=== PATIENT | male | born 2000 | race Caucasian/White ===

== ENCOUNTER 2021-03-14 14:36 | Emergency (ER) | payer OTHER, SELFPAY ==
[2021-03-14] VITALS (11 sets, daily range): BP systolic 102–145; BP diastolic 56–81; PULSE 62–82; RESP 16; TEMP 37–37.1; O2SAT 97–100
--- NOTE | ~2021-03-14 | XR_ITS ---
EXAMINATION: XR chest 2V DATE: 03/14/2021 15:16 INDICATION: Shortness of breath. TECHNIQUE: Frontal and lateral views of the chest were obtained. COMPARISON: Chest 2 views 08/09/2017, CT abdomen and pelvis 11/16/2017 FINDINGS: The chest demonstrates clear lungs without pneumonia, pleural effusion, or pneumothorax. Th e heart size is normal. IMPRESSION: 1. No acute cardiopulmonary disease. Reviewed, dictated and finalized at location A.
--- NOTE | ~2021-03-14 | CT_ITS ---
EXAMINATION: CT abdomen pelvis w con DATE: 03/14/2021 18:52 INDICATION: Abdominal pain. TECHNIQUE: Computed tomography (CT) of the abdomen and pelvis was performed with 100 mL Omnipaque 350 intravenous contrast. Automated exposure control and iterative reconstruction technique were employe d. The dose-length product was 274.27 mGy-cm. COMPARISON: CT abdomen and pelvis 11/16/2017 FINDINGS: The visualized portions of the lung bases are clear without pneumonia or pleural effusion. The heart size is normal. No pericardial effusion. The liver, gallbladder, spleen, pancreas, adrenal glands, and kidneys are normal. There are no dilated loops of bowel. The appendix is normal. There ar e no pathologically enlarged lymph nodes. There is no free intraperitoneal fluid. The bones are unrem arkable. IMPRESSION: 1. No etiology for the patient's symptoms. Reviewed, dictated and finalized at location A.
[2021-03-14 15:13] LABS: Basophils Percent Auto 0.5 % (0.2-1.2); Eosinophils Absolute Auto 0.1 K/mm3 (0-0.3); Eosinophils Percent Auto 1.3 % (0-4.4); Hematocrit 43.3 % (42.0-52.0); Hemoglobin 14.4 g/dL (14.0-18.0); Immature Granulocyte Absolute 0.03 K/mm3 (0.00-0.031); Immature Granulocyte Percent A 0.4 % (0-0.5); Lymphocytes Absolute Auto 1.32 K/mm3 (0.9-3.2); Lymphocytes Percent Auto 15.4 % (18.3-44.2); Mean Corpuscular HGB Conc 33.3 g/dl (32-36); Mean Corpuscular Hemoglobin 31.9 pg (26-34); Monocytes Absolute Auto 0.6 K/mm3 (0.1-0.6); Monocytes Percent Auto 7.1 % (2.6-8.5); Neutrophils Absolute Auto 6.5 K/mm3 (1.3-6.7); Neutrophils Percent Auto 75.3 % (45.5-73.1); Platelet Count Result 249 k/mm3 (150-375); Red Blood Count 4.51 M/mm3 (4.6-6.20); Red Cell Distribution Width 12.3 % (11.5-14.5); White Blood Count 8.6 K/mm3 (4.5-10.0)
[2021-03-14 15:23] LABS: Alanine Aminotransferase 36 U/L (4-50); Albumin Level 4.4 g/dL (3.5-5.1); Alkaline Phosphatase 63 U/L (38-126); Anion Gap 7 mmol/L (8-16); Aspartate Amino Transferase 42 U/L (17-59); Bilirubin,Total 0.4 mg/dL (0.2-1.3); Blood Urea Nitrogen 11 mg/dL (9-20); Calcium 9.3 mg/dL (8.4-10.2); Carbon Dioxide 27 mmol/L (22-30); Chloride 105 mmol/L (98-107); Estimated CRCL calculation 107 ml/min; Estimated Glomerular Filt Rate > 60; Glucose 111 mg/dL (75-110); Potassium 3.6 mmol/L (3.4-5.0); Sodium 139 mmol/L (137-145)
[2021-03-14 15:34] LABS: Add Urine Microscopic? YES; Amorphous Sediment Urine Few; Appearance Urine Cloudy (Clear); Bacteria Urine Trace /hpf; Bilirubin Urine Negative (Negative); Blood Urine Negative (Negative); Color Urine Yellow (Yellow); Glucose Urine UA Negative (Negative); Ketones Urine Negative (Negative); Leukocyte Esterase Ur Negative LEU/UL (Negative); Nitrate Urine Negative (Negative); Protein Urine Negative (Negative); RBC Urine 0-2 /hpf (0-2); Specific Grav Ur 1.012 (1.001-1.035); Urobilinogen Urine Negative mg/dL (<2.0); WBC Urine 0-3 /hpf
--- NOTE | 2021-03-14 16:25 | ED.GENADULT ---
HPI - General Adult General Chief complaint: Unspecified Stated complaint: Sent From [facility], Multiple Complaints Time Seen by Provider: 03/14/21 16:18 Source: patient and family Mode of arrival: ambulatory Limitations: no limitations History of Present Illness HPI narrative: Patient is a 20-year-old male with history of celiac disease, anxiety who presents for evaluation of multiple complaints from urgent care. Unsure why the patient was sent from urgent care to be evaluated. Patient is also unsure of this. States that he was told that he needed to come here for evaluation. Patient is reporting intermittent abdominal pain and fullness which is now mostly resolved. He had an episode of nausea and dry heaving this morning. No fever or chills. No chest pain or current shortness of breath. No diarrhea or constipation. No rash. Patient states that his hair is falling out and he intermittently has felt weak. He states he often has night sweats and has insomnia. No unintentional weight loss. No history of autoimmune disease. Patient states that at times he feels short of breath but denies that currently. At times he feel he may pass out but has had no episodes of loss of consciousness. In the past, patient has had a bowel obstruction where he was hospitalized at [facility]. Of note, patient does state his anxiety has been heightened due to a recent break-up with a girlfriend. Patient states this may be the cause of his symptoms as well. Related Data Home Medications Medication Instructions Recorded Confirmed No Home Medications 03/14/21 03/14/21 Allergies Allergy/AdvReac Type Severity Reaction Status Date / Time gluten Allergy Severe celiacs Verified 03/14/21 16:25 disease Review of Systems Review of Systems: Narrative: CONSTITUTIONAL: Reports night sweats and insomnia EYES: Denies visual changes, redness, or discharge. ENT: Denies rhinorrhea, congestion, reports sore throat for 2 days CARDIOVASCULAR: Denies chest pain, palpitations, or edema. RESPIRATORY: Denies cough or current dyspnea. GASTROINTESTINAL: Reports abdominal pain, nausea GENITOURINARY: Denies dysuria or hematuria. SKIN: Denies rash or itching. MUSCULOSKELETAL: Denies back pain, joint pain, or myalgia. NEUROLOGIC: Denies headache, numbness, or weakness. PSYCHIATRIC: Reports anxiety PMFSH Past Medical History Medical History (Updated 03/14/21 @ 18:49 by Maryjane Rodríguez MD) Anxiety Celiac disease Social History Social History Smoking status: Never smoker Alcohol intake: current Substance use: never Exam Narrative: Exam Narrative: GENERAL: Awake, alert, conversant, mildly anxious appearing HEAD: Normocephalic, atraumatic. EYES: PERRLA and EOMI. ENT: Nares clear, no rhinorrhea or epistaxis. Mucous membranes moist. NECK: Supple. No thyromegaly. CHEST: No respiratory distress, breathing even and non labored HEART: Regular rate, sinus rhythm ABDOMEN:Non distended, non tender in all 4 quadrants, no rebound or guarding EXTREMITIES: Normal range of motion. No edema. No calf pain. SKIN: Warm, dry, no rash. NEURO:No focal deficits. Alert and oriented x3 Course Vital Signs Vital signs: Vital Signs Temperature 37.1 C 03/14/21 14:57 Pulse Rate 82 03/14/21 14:57 Respiratory Rate 16 03/14/21 14:57 Blood Pressure 110/65 03/14/21 14:57 Pulse Oximetry 99 03/14/21 14:57 Temperature 37.1 C 03/14/21 14:57 Pulse Rate 82 03/14/21 14:57 Respiratory Rate 16 03/14/21 14:57 Blood Pressure 102/63 03/14/21 18:16 Pulse Oximetry 98 03/14/21 18:16 Medical Decision Making MDM Narrative Medical decision making narrative: Patient presenting for evaluation of a myriad of symptoms which include general fatigue, insomnia, hair loss, abdominal pain. At the time of assessment, patient's abdomen is soft without significant pain or signs of
[2021-03-14 18:11] LABS: Lipase 119 U/L (23-300)
== END 2021-03-14 20:00 | disposition home or self-care (01) ==
PROVIDERS: Emergency Medicine; Emergency Provider Emergency Medicine; PCP Family Medicine
DX: R10.9 Unspecified abdominal pain (principal); F41.9 Anxiety disorder, unspecified
CPT/HCPCS: 36415; 71046; 74177; 80053; 81001; 83690; 85025; 87081; 87880; 99284; Q9967

== ENCOUNTER 2025-04-23 19:21 | Emergency (ER) | payer BC, SELFPAY ==
[2025-04-23 19:33] VITALS: BP 116/87; PULSE 98; RESP 17; TEMP 35.9; O2SAT 99
--- NOTE | 2025-04-23 19:46 | ED_ITS ---
HPI - Skin/Abscess/Foreign Bdy General Chief complaint: Skin/Abscess/Foreign Body Stated complaint: ?Poisn Fanny Time Seen by Provider: 04/23/25 19:30 Source: patient and RN notes reviewed Mode of arrival: ambulatory Limitations: no limitations History of Present Illness HPI narrative: 24-year-old male presents to the [facility] complaining of poison fanny the last week. 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 Patient reports a pruritic papular rash to his bilateral ankles, arms, and groin area. Patient denies any fevers body aches, chills, nausea vomiting, pain, or other symptoms. She has not tried in the [id number] and help with symptoms. Related Data Allergies Allergy/AdvReac Type Severity Reaction Status Date / Time gluten Allergy Severe celiacs Verified 04/23/25 19:28 disease Review of Systems Review of Systems: CONSTITUTIONAL: Denies fever, chills, or sweats. EYES: Denies visual changes, redness, or discharge. ENT: Denies rhinorrhea, congestion, sore throat, or otalgia. CARDIOVASCULAR: Denies chest pain, palpitations, or edema. RESPIRATORY: Denies cough or dyspnea. GASTROINTESTINAL: Denies abdominal pain, nausea, vomiting, or diarrhea. GENITOURINARY: Denies dysuria or hematuria. SKIN: Positive for rash or itching. MUSCULOSKELETAL: Denies back pain, joint pain, or myalgia. NEUROLOGIC: Denies headache, numbness, or weakness. PSYCHIATRIC: Denies anxiety or depression. All other systems reviewed are negative, except as documented in HPI. [facility] Past Medical History Medical History Celiac disease Anxiety Social History Social History Smoking status: Never smoker Second hand tobacco smoke exposure: Yes Alcohol intake: current Substance use: never Comments At the time of my signature, I reviewed and agree with the nursing past medical, surgical, social, and family history. There is no relevant family history pertinent to the patient complaint. Exam Narrative: GENERAL: This is a well-nourished, well-developed adult, in no apparent distress. They are non ill-appearing, nontoxic appearing. HEAD: normocephalic, atraumatic. EYES: Sclera clear/white. Conjunctiva normal. Vision is grossly intact. Extraocular movements intact EARS: External ears normal, Hearing grossly intact. NOSE: External nose normal THROAT: Mucous membranes moist, NECK: Neck supple, CARDIOVASCULAR: Regular rate and rhythm RESPIRATORY: Respiratory rate normal, respiratory effort nonlabored, no respiratory distress SKIN: There is a vesicular papular erythematous pruritic rash scattered scantly throughout the patient's bilateral arms, diffusely the patient's bilateral ankles, in through the ground the groin. No area of fluctuance, no induration, no area of fluctuance rashes nontender. NEURO: awake, alert, and oriented to person, place and time. There were no obvious focal neurologic abnormalities. EXTREMITIES: No joint tenderness, effusion, or edema noted. Course Course Emergency Course: Portions of this record may have been created with voice recognition software Level of Care: Express Care Visit Vital Signs Vital signs: Reviewed MDM - Skin/Abscess/Foreign Bdy MDM Narrative Medical decision making narrative: Patient likely has contact dermatitis from poison fanny. Patient given a sinusitis Medrol start a prescription of prednisone tomorrow. Discussed physical exam findings. Advised supportive measures and signs/symptoms to go to the ER. Pt is appropriate for outpt treatment and f/u. Differential Diagnosis Differential diagnosis: Likely viral exanthem, cellulitis, impetigo and contact dermatitis Critical Care Time Critical Care Time Critical Care Time: No Discharge Plan Discharge Clinical Impression: Poison fanny Patient Disposition: Home Condition: Stable Instructions: Poison Fanny (ED) Additional Instructions: Your given a shot of methylprednisolone today. Start the prednisone tomorrow. Take the prednisone as directed. Take it in the morning and take it with food. You may use jclw-nel-snjaekm Tecnu soap as directed on the bottle to help remove the oils from poison fanny off your skin. You may use calamine lotion, camphor, hydrocortisone cream, Benadryl cream as needed for itchiness symptoms. You may also take Zyrtec or Claritin as needed for allergy ear or symptoms. Follow-up PCP in 3-5 days. If you develop any worsening redness, swelling, discharge, fevers, breathing problems, or any other concerns please go to the ER immediately. Patient Language: Cape Verdean Prescriptions: New prednisone 50 mg tablet 50 mg PO DAILY 5 Days Qty: 5 0RF Follow-up/Referrals: UNKNOWN,DOCTOR [Primary Care Provider] - Time of Disposition: 19:45
== END 2025-04-23 19:57 | disposition home or self-care (01) ==
DX: L23.7 Allergic contact dermatitis due to plants, except food (principal); K90.0 Celiac disease
CPT/HCPCS: 96372; 99213; G0463; J2919

== ENCOUNTER 2025-05-06 16:48 | Emergency (ER) | payer BC, SELFPAY ==
--- NOTE | ~2025-05-06 | XR_ITS ---
Clinical history:Crush injury. Laceration distal lateral finger EXAM:X-ray finger third left middle 2 views TECHNIQUE:4 images of the left middle digit were obtained. Comparisons:None FINDINGS: Soft tissue swelling about the third finger. No fracture. No dislocation. No radiopaque foreign body identified. IMPRESSION: No fracture. No dislocation. Soft tissue swelling about the left third digit. If symptoms persist or worsen, consider a short-term follow-up study or additional imaging for furthe r assessment. Reviewed, dictated and finalized at location A. IMPRESSION: No fracture. No dislocation. Soft tissue swelling about the left third digit. If symptoms persist or worsen, consider a short-term follow-up study or additio nal imaging for further assessment.
--- NOTE | 2025-05-06 16:50 | ED_ITS ---
HPI - Wound/Laceration General Chief Complaint: Extremity Injury, Upper Stated Complaint: Cut Hand Time Seen by Provider: 05/06/25 16:50 Source: patient Mode of arrival: ambulatory Limitations: no limitations History of Present Illness HPI narrative: Mckay is a 24-year-old male patient presenting to the clinic today with complaints of a left 3rd finger injury. He reports he smashed it on the bucket truck while at work. Has a laceration to the distal finger. Bleeding is controlled. Tetanus is unknown. Works in the [employer] industry. Related Data Allergies Allergy/AdvReac Type Severity Reaction Status Date / Time gluten Allergy Severe celiacs Verified 05/06/25 17:00 disease Review of Systems Review of Systems: Pertinent positives per HPI. Patient denies any fever, chills, rash, headache, visual changes, dizziness, cough, runny nose, sore throat, shortness of breath, chest pain, palpitations, nausea, vomiting, diarrhea, constipation, abdominal pain, or any urinary issues. [facility] Past Medical History Medical History (Updated 05/06/25 @ 17:23 by Nilesh Tang APRN) Celiac disease Anxiety Social History Social History Smoking status: Never smoker Second hand tobacco smoke exposure: Yes Alcohol intake: current Substance use: never Comments At the time of my signature, I reviewed and agree with the nursing past medical, surgical, social, and family history. There is no relevant family history pertinent to the patient complaint. Exam Narrative: General: Well-developed, well nourished, in no apparent distress Head: Normocephalic, atraumatic. Cardio: Regular rate and rhythm, s1 and s2 normal, no murmur appreciated. Resp: Clear to auscultation bilaterally, no rhonchi, rales, wheezing or rubs. Musculoskeletal: No deformity, avulsion flap laceration measuring 1.5 cm to the distal left 3rd lateral finger, tender to palpation, grossly normal range of motion, muscle strength strong and equal, peripheral pulse strong, no edema, no cyanosis, normal gait and station Course Course Emergency Course: Portions of this record may have been created with voice recognition software. Level of Care: Express Care Visit Vital Signs Vital signs: Vital Signs Temperature 36.6 C 05/06/25 17:01 Pulse Rate 78 05/06/25 17:01 Respiratory Rate 14 05/06/25 17:01 Blood Pressure 117/75 05/06/25 17:01 Pulse Oximetry 100 05/06/25 17:01 Oxygen Delivery Room Air 05/06/25 17:01 Temperature 36.6 C 05/06/25 17:01 Pulse Rate 78 05/06/25 17:01 Respiratory Rate 14 05/06/25 17:01 Blood Pressure 117/75 05/06/25 17:01 Pulse Oximetry 100 05/06/25 17:01 Oxygen Delivery Room Air 05/06/25 17:01 Vital signs reviewed Procedures Laceration Laceration 1: Date: 05/06/25 Site: hand (3rd finger) Side (If applicable): left Size (cm): 1 Description: irregular Depth: simple, single layer Local Anesthetic: lidocaine 1% Amount of anesthesia used (mL): 2 Pre-repair: wound explored, irrigated and irrigated extensively ====== Skin Level ====== Skin layer closed with: nylon Size (cm): 5-0 Technique: simple, interrupted ====== Subcutaneous Layer ====== ====== Muscle Layer ====== ====== Tendon Layer ====== Dressing: Verbal consent obtained for laceration repair. Risk and benefits explained and patient voiced understanding. Area was cleansed with antiseptic wound wash, sterile normal saline irrigation, and Betadine and a 27 gauge needle was then used to instill (4) ml of 1% lidocaine without epi into the mid finger finger just above the PIP joint to create a digital block. Anesthesia was appropriate. Area was prepped and draped using sterile technique. A 5-0 suture on a p needle was used to place (4) interrupted sutures bringing the wound edges together- well approximated. Patient tolerated procedure well. Sterile dressing applied. MDM - Wound/Laceration MDM Narrative Medical decision making narrative: At the time of visit patient is resting comfortably on the exam table. Patient appears to be nontoxic. Complaints of a left 3rd finger injury. He reports he smashed it on the bucket truck while at work. Has a laceration to the distal finger. Bleeding is controlled. Tetanus is unknown. Diagnostics: X-ray of the left 3rd finger was performed and shows no sign of acute fracture or malalignment. Procedures: Laceration repair was performed in the clinic today. Four interrupted sutures were placed in the wound and close well approximate. Left small area of opening for drainage as the patient has a contaminated wound-work in the [employer] industry. Plan: Patient has avulsion laceration to the left middle lateral distal finger. Laceration repair was performed placing [address] patient on cephalexin prophylactically for infection as the wound was contaminated. Supportive measures were discussed with the patient and they voiced understanding discharge instructions and agrees to treatment plan. Return precautions reviewed Differential Diagnosis Differential diagnosis: Likely laceration, abscess, abrasion, avulsion of skin and other (Finger fracture-open fracture) Discharge Plan Discharge Clinical Impression: Finger laceration Qualifiers: Encounter type: initial encounter Finger: middle finger Damage to nail status: without damage Foreign body presence: without foreign body Laterality: left Qualified Code(s): S61.213A - Laceration without foreign body of left middle finger without damage to nail, initial encounter Patient Disposition: Home Condition: Stable Instructions: Antibiotic Form, Finger Laceration (ED) Additional Instructions: X-ray of the left 3rd finger is negative for any sign of fracture or malalignment. Tdap was given in the clinic today. Take cephalexin as prescribed Leave bandage on for 24 hours then may remove and apply band aide covering as needed. Keep wound clean and dry Skin sutures out in 7-10 days. If head laceration- norberto out in 5 days. Watch for signs and symptoms of infection- redness, streaking, swelling, purulent discharge, or increase in pain. Follow up with your PCP for suture removal or return to the Express care. Patient Language: Dominican Prescriptions: New cephalexin 500 mg capsule 500 mg PO Q12H 7 Days Qty: 14 0RF Follow-up/Referrals: UNKNOWN,DOCTOR [Non-Staff] - Time of Disposition: 18:07 Quality NIHSS Nursing Documentation ED NIHSS nursing documentation: reviewed/agree
[2025-05-06 17:01] VITALS: BP 117/75; PULSE 78; RESP 14; TEMP 36.6; O2SAT 100
[2025-05-06] MEDS: TETANUS,DIPHTHERIA,AC PERTUSSIS ADULT (0.5 ML) BOOSTRIX IM (17:25)
== END 2025-05-06 18:10 | disposition home or self-care (01) ==
PROVIDERS: Emergency Provider Nurse Practitioner Family
DX: S61.213A Laceration without foreign body of left middle finger without damage to nail, initial encounter (principal); W23.0XXA Caught, crushed, jammed, or pinched between moving objects, initial encounter; Z23 Encounter for immunization
CPT/HCPCS: 12001; 73140; 90471; 90715; 99213; G0463; J2003

== ENCOUNTER 2025-07-16 17:10 | Emergency (ER) | payer BC, SELFPAY ==
[2025-07-16 17:15] VITALS: BP 143/72; PULSE 87; RESP 20; TEMP 36.8; O2SAT 100
--- NOTE | 2025-07-16 17:16 | ED_ITS ---
HPI - Skin/Abscess/Foreign Bdy General Chief complaint: Skin/Abscess/Foreign Body Stated complaint: RASH Source: patient and RN notes reviewed Mode of arrival: ambulatory Limitations: no limitations History of Present Illness HPI narrative: Patient is a 24-year-old male who presents to the [facility] with complaints of possible poison fanny. Patient states that he was out the [employer] over the weekend hunting. He states that he noticed a rash to bilateral hands, arms, and genitals yesterday. He reports itching of the rash. Denies recent illness or fever. Related Data Allergies Allergy/AdvReac Type Severity Reaction Status Date / Time gluten Allergy Severe celiacs Verified 07/16/25 17:13 disease Review of Systems Review of Systems: CONSTITUTIONAL: Denies fever, chills, or sweats. EYES: Denies visual changes, redness, or discharge. ENT: Denies otalgia and sore throat CARDIOVASCULAR: Denies chest pain, palpitations, or edema. RESPIRATORY: Denies cough or dyspnea. GASTROINTESTINAL: Denies abdominal pain, nausea, vomiting, or diarrhea. GENITOURINARY: Denies dysuria or hematuria. SKIN: Reports rash and itching. MUSCULOSKELETAL: Denies back pain, joint pain, or myalgia. NEUROLOGIC: Denies headache, numbness, or weakness. Pertinent positives per HPI. [facility] Past Medical History Medical History (Updated 07/16/25 @ 17:24 by Monie Montoya APRN) Celiac disease Anxiety Social History Social History Smoking status: Never smoker Second hand tobacco smoke exposure: Yes Alcohol intake: current Substance use: never Comments At the time of my signature, I reviewed and agree with the nursing past medical, surgical, social, and family history. There is no relevant family history pertinent to the patient complaint. Exam Narrative: GENERAL: This is a well-nourished, well-developed patient, in no apparent distress. HEAD: normocephalic, atraumatic. EYES: PERRL. Sclera clear/white. Vision is grossly intact. EARS: External ears normal, auditory canals clear and without drainage, TMs normal without perforation. Hearing grossly intact. NOSE: External nose normal with no obvious nasal discharge, nares without redness, no rhinorrhea. THROAT: Mucous membranes moist, posterior pharynx clear. NECK: Neck supple, non-tender without lymphadenopathy, masses or thyromegaly. CARDIOVASCULAR: Regular rate and rhythm without murmurs, gallops, or rubs. RESPIRATORY: Clear to auscultation. Breath sounds equal bilaterally. No wheezes, rales, or rhonchi. GASTROINTESTINAL: Abdomen soft, non-tender, nondistended. Bowel sounds are active. No hepato-splenomegaly, or palpable masses. No guarding. SKIN: Vesicular rash, consistent with poison fanny to bilateral hands, arms, and genitals. NEURO: awake, alert, and oriented to person, place and time. There were no obvious focal neurologic abnormalities. Course Course Level of Care: Express Care Visit Vital Signs Vital signs: Reviewed MDM - Skin/Abscess/Foreign Bdy MDM Narrative Medical decision making narrative: Prevention is always better than treatment. Learn to identify poison fanny, oak, and sumac and avoid it. Wear long sleeves, long pants, shoes, and socks. If you touched the plant, try to keep your hands away from your eyes, mouth, and face. Wash the skin thoroughly with soap and cool water as soon as possible. Scrub under the fingernails with a brush to prevent spreading of the resin to other parts of the body by touching or scratching. Remember to wash any clothing with soap and hot water as the resin can persist for many months and cause further dermatitis. Use calamine lotion on the affect area. IF symptoms get worse to follow up with your primary care provider or seek ER visit if you developing difficulty breathing, weakness, dizziness. Differential Diagnosis Differential diagnosis: Likely abscess of skin or subcutaneous tissue, cellulitis, contact dermatitis and other (poison fanny) Critical Care Time Critical Care Time Critical Care Time: No Discharge Plan Discharge Clinical Impression: Poison fanny dermatitis Patient Disposition: Home Condition: Stable Instructions: Poison Fanny (ED) Additional Instructions: Prevention is always better than treatment. Learn to identify poison fanny, oak, and sumac and avoid it. Wear long sleeves, long pants, shoes, and socks. If you touched the plant, try to keep your hands away from your eyes, mouth, and face. Wash the skin thoroughly with soap and cool water as soon as possible. Scrub under the fingernails with a brush to prevent spreading of the resin to other parts of the body by touching or scratching. Remember to wash any clothing with soap and hot water as the resin can persist for many months and cause further dermatitis. Use calamine lotion on the affect area. IF symptoms get worse to follow up with your primary care provider or seek ER visit if you developing difficulty breathing, weakness, dizziness. Patient Language: Emirati Prescriptions: New prednisone 10 mg tablet 10 mg PO DIRECTED Qty: 35 0RF Rx Instructions: Take 4 tabs on days 1 through 5 then 2 tabs on days 6 through 10 then 1 tab on days 11 through 15 Follow-up/Referrals: PHYSICIAN,ENGINEER AND GEOLOGIST [Primary Care Provider, Internal Medicine] Time of Disposition: 17:25
== END 2025-07-16 17:28 | disposition home or self-care (01) ==
PROVIDERS: Emergency Provider Nurse Practitioner
DX: L23.7 Allergic contact dermatitis due to plants, except food (principal); K90.0 Celiac disease
CPT/HCPCS: 99213; G0463